=== PATIENT | male | born 1960 | race Caucasian/White ===

== ENCOUNTER → 2020-06-28 | Outpatient (CLI) | payer MEDICARE, OTHER ==
[~2020-06-28] MED LIST: AMBIEN10 MG PO; ATORVASTATIN CA20 MG PO; BRILINTA 90 MG90 MG PO; ECOTRIN81 MG PO; HABITROL 14 MG P1 EA TOP; LOPRESSOR 25 MG25 MG PO; NITROSTAT0.4 MG SL; OMEPRAZOLE20 MG PO; PERCOCET 10-321 EACH PO; PRINIVIL5 MG PO
== END ==
LOC: HEART 5 05-25 08:30 → ECHO 12:00 → NM 13:00
DX: I20.9 Angina pectoris, unspecified (principal)
CPT/HCPCS: ECHO; 78452; 93017; 93306; A9502